=== PATIENT | male | born 1970 | race Two or more races ===

== ENCOUNTER 2019-05-30 16:34 | Emergency (ER) | payer SELFPAY ==
[~2019-05-30] VITALS: Ht 162.6 cm; Wt 66.0 kg
[2019-05-30 17:06] VITALS: BP 140/97
[2019-05-30] MEDS ORDERED: PLEASE ENTER ALLERGIES MC SCH (17:30)
== END 2019-05-30 18:00 | disposition home or self-care (01) ==
LOC: ED 17:54
DX: S50.862A Insect bite (nonvenomous) of left forearm, initial encounter (principal); S80.861A Insect bite (nonvenomous), right lower leg, initial encounter; E11.9 Type 2 diabetes mellitus without complications; W57.XXXA Bitten or stung by nonvenomous insect and other nonvenomous arthropods, initial encounter; Y93.89 Activity, other specified; Y92.89 Other specified places as the place of occurrence of the external cause; Y99.8 Other external cause status
CPT/HCPCS: 99283; Q0177

== ENCOUNTER 2020-04-23 10:26 | Inpatient (IN) | payer OTHER ==
[~2020-04-23] VITALS: Ht 165.1 cm; Wt 66.9 kg
[2020-04-23] MEDS ORDERED: ONDANSETRON 2MG/ML, 2ML ONE (10:52)
[2020-04-23] MEDS ORDERED: ONDANSETRON 2MG/ML, 2ML IVPush ONE (11:00)
[2020-04-23] MEDS ORDERED: SODIUM CHLORIDE 0.9% 1,000ML IVBOLUS ONE ×3 (11:00→13:00)
--- NOTE | 2020-04-23 11:00 | NUR ---
PT PLACE ON ALL ROOM MONITORING. EKG DONE ON ARRIVAL TO ROOM. FS READ HI. PT STATES HX OF HTN, HIGH CHOL, IDDM, GASTRITIS, NEUROPATHY. PT A/O X 3 BUT APPEARS INTOXICATED AND REPORTS OF HEAVY BINGE DRINKING. C/O "STOMACH" PAIN, TENDER TO RUQ AND N/V. CALL LIGHT WITHIN REACH.
[2020-04-23 11:15] LABS: PH, VENOUS 7.176 pH (7.320-7.420)
[2020-04-23 11:20] LABS: BASOPHILS % (AUTO) 0 % (0-1); EOSINOPHILS % (AUTO) 0 % (1-7); LYMPHOCYTES % (AUTO) 4 % (22-44); MEAN CORPUSCULAR HEMOGLOBIN 32.8 pg (27.5-34.5); MEAN CORPUSCULAR HGB CONC 34.6 g/dL (33.2-36.2); MEAN PLATELET VOLUME 10.4 fL (7.4-10.4); MONOCYTES % (AUTO) 4 % (2-9); NEUTROPHILS % (AUTO) 91 % (42-75); PLATELET COUNT 88 x10^3/uL (130-400); RED BLOOD COUNT 4.77 x10^6/uL (4.38-5.82); RED CELL DISTRIBUTION WIDTH 12.8 % (9.4-14.8)
[2020-04-23 11:33] LABS: ALBUMIN 3.7 g/dL (3.4-5.0); ANION GAP 26 mmol/L (5-15); CALCIUM 8.4 mg/dL (8.5-10.1); CHLORIDE 95 mmol/L (98-107)
[2020-04-23 11:38] LABS: ALANINE AMINOTRANSFERASE 79 U/L (12-78); ALKALINE PHOSPHATASE 135 U/L (45-117); BILIRUBIN,TOTAL 1.1 mg/dL (0.2-1.0); CREATININE 1.56 mg/dL (0.7-1.3); TOTAL PROTEIN 7.3 g/dL (6.4-8.2)
--- NOTE | 2020-04-23 11:44 | NUR ---
2ND IV PLACED, 2ND NS BOLUS INFUSING. VSS/UPDATED IN COMPUTER.
[2020-04-23] MEDS ORDERED: REGULAR INSULIN 100 UNITS in SODIUM CHLORIDE 0.9% 99 ML IV PRN ×2 (12:00→13:00)
--- NOTE | 2020-04-23 12:19 | NUR ---
FS 539. URINE COLLECTED/SENT TO LAB. PT C/O PERSISTENT NAUSEA, REQUEST FOR ADDITIONAL ANTIEMETIC TO ERP.
[2020-04-23 12:22] LABS: ACETONE, SERUM Large (80mg/dL) (Negative)
[2020-04-23 12:25] LABS: MD SCAN
[2020-04-23 12:28] LABS: MICROSCOPIC AUTO
[2020-04-23] MEDS ORDERED: METOCLOPRAMIDE 5 MG/ML, 2ML IVPush ONE (12:30)
[2020-04-23] MEDS ORDERED: METOCLOPRAMIDE 5 MG/ML, 2ML ONE (12:34)
--- NOTE | 2020-04-23 12:44 | NUR ---
MED REQUEST TO PHARMACY FOR INSULIN GTT. REGLAN GIVEN FOR PERSISTENT NAUSEA. PCXR AT BS. CALL LIGHT WITHIN REACH.
[2020-04-23] MEDS ORDERED: LABETALOL 5MG/ML, 20ML IVPush PRN (13:00)
[2020-04-23] MEDS ORDERED: LORazepam 2 MG/ML, 1ML IV PRN ×4 (13:00)
[2020-04-23] MEDS ORDERED: POTASSIUM CHLORIDE 40 MEQ in SODIUM CHLORIDE 0.9% 500 ML IV ONE ×2 (13:00→16:00)
[2020-04-23] MEDS ORDERED: ONDANSETRON 2MG/ML, 2ML IV PRN (13:00)
--- NOTE | 2020-04-23 13:09 | NUR ---
[facility] IN TO SEE PT. CLARIFICATION OF ORDERS, PER [facility], CX 2LITER NS BOLUS. PT ALLOWED TO HAVE ICE CHIPS. ADDITIONAL LABS DRAWN. INSULIN GTT INFUSING PER [facility]. PT RESTING, STATES NAUSEA AND PAIN BETTER AT THIS TIME. CALL LIGHT WITHIN REACH.
[2020-04-23] MEDS ORDERED: PHENOBARBITAL ETOH DETOX PER PHARMACY MC PRN ×2 (13:30→21:03)
[2020-04-23 13:38] LABS: CHOL/HDL RATIO 7.5; CHOLESTEROL, TOTAL 322 mg/dL (140-239); FREE T4 (FREE THYROXINE) 0.74 ng/dL (0.76-1.46); HDL CHOL % 13 % (26-37); HDL CHOLESTEROL (DIRECT) 43 mg/dL (40-60); TRIGLYCERIDES 1824 mg/dL (50-200)
--- NOTE | 2020-04-23 13:41 | NUR ---
REPORT TO [facility] READY FOR TRANSPORT TO FLOOR.
[2020-04-23] MEDS: SODIUM CHLORIDE 0.9% 1,000 ML IV SCH ×3 (14:04→22:55)
[2020-04-23] MEDS ORDERED: SODIUM CHLORIDE 0.9% IV ONE (14:30)
[2020-04-23] MEDS ORDERED: PHENOBARBITAL SODIUM IV ONE (14:30)
[2020-04-23] MEDS ORDERED: INSU100V13 SQ (14:47)
[2020-04-23] MEDS ORDERED: EXEN5PEN2 SQ (14:47)
[2020-04-23] MEDS: THIAMINE 200 MG in DEXTROSE 5% 50 ML IVPB SCH (15:01)
[2020-04-23 15:29] LABS: ANION GAP 22 mmol/L (5-15); CALCIUM 7.5 mg/dL (8.5-10.1); CHLORIDE 103 mmol/L (98-107)
[2020-04-23 15:31] LABS: CREATININE 1.17 mg/dL (0.7-1.3)
[2020-04-23 16:26] LABS: TROPONIN I < 0.015 ng/mL (0.000-0.045)
[2020-04-23 19:11] LABS: ANION GAP 18 mmol/L (5-15); CALCIUM 7.6 mg/dL (8.5-10.1); CHLORIDE 108 mmol/L (98-107); CREATININE 1.02 mg/dL (0.7-1.3)
[2020-04-23] MEDS: D5%-0.45NACL+KCL 20MEQ 1,000 ML IV SCH (19:29)
[2020-04-23] MEDS ORDERED: PHENOBARBITAL SODIUM 65 MG/ML, 1ML IM SCH ×2 (21:00→21:30)
[2020-04-23] MEDS: PHENOBARBITAL SODIUM 65 MG/ML, 1ML IM SCH (22:33)
[2020-04-23 23:38] LABS: ANION GAP 11 mmol/L (5-15); CALCIUM 7.4 mg/dL (8.5-10.1); CHLORIDE 112 mmol/L (98-107); CREATININE 0.98 mg/dL (0.7-1.3)
[2020-04-24] MEDS ORDERED: POTASSIUM CHLORIDE 40 MEQ in SODIUM CHLORIDE 0.9% 500 ML IV ONE (01:30)
[2020-04-24 03:39] LABS: ANION GAP 10 mmol/L (5-15); CALCIUM 7.1 mg/dL (8.5-10.1); CHLORIDE 111 mmol/L (98-107)
[2020-04-24 03:40] LABS: CREATININE 0.91 mg/dL (0.7-1.3)
[2020-04-24] MEDS: D5%-0.45NACL+KCL 20MEQ 1,000 ML IV SCH (03:54)
[2020-04-24] MEDS: ESOMEPRAZOLE 40 MG IV IVPush SCH (08:16)
[2020-04-24] MEDS ORDERED: INSULIN GLARGINE 100 UNITS/ML, PEN SQ-INSULIN ONE (08:30)
[2020-04-24 08:32] LABS: TRIGLYCERIDES 402 mg/dL (50-200)
[2020-04-24 08:56] LABS: ANION GAP 10 mmol/L (5-15); CALCIUM 7.2 mg/dL (8.5-10.1); CHLORIDE 110 mmol/L (98-107); CREATININE 0.89 mg/dL (0.7-1.3)
[2020-04-24] MEDS: PHENOBARBITAL SODIUM 65 MG/ML, 1ML IM SCH (09:29)
[2020-04-24] MEDS: THIAMINE 200 MG in DEXTROSE 5% 50 ML IVPB SCH (09:29)
[2020-04-24] MEDS ORDERED: GLUCAGON 1 MG IM PRN (10:30)
[2020-04-24] MEDS ORDERED: DEXTROSE 50%, 50ML SYRINGE IVPush PRN (10:30)
[2020-04-24] MEDS ORDERED: DEXTROSE 4 GM TAB.CHEW PO PRN (10:30)
[2020-04-24] MEDS ORDERED: INSULIN LISPRO 100 UNITS/ML, PEN SQ-INSULIN SCH (11:00)
[2020-04-24] MEDS: INSULIN LISPRO 100 UNITS/ML, PEN SQ-INSULIN SCH ×4 (12:04→21:00)
[2020-04-24 12:05] VITALS: BP 135/88
[2020-04-24] MEDS ORDERED: ACETAMINOPHEN 325 MG TABLET ONE (12:55)
[2020-04-24] MEDS: ACETAMINOPHEN 325 MG TABLET PO PRN (12:58)
[2020-04-24] MEDS: METOCLOPRAMIDE 5 MG/ML, 2ML IV PRN (12:58)
[2020-04-24 18:00] VITALS: BP 144/86
[2020-04-24 19:41] VITALS: BP 123/75
[2020-04-24] MEDS: INSULIN GLARGINE 100 UNITS/ML, PEN SQ-INSULIN SCH (21:28)
[2020-04-24] MEDS: SODIUM CHLORIDE FLUSH 10ML SYR IVF SCH (21:29)
[2020-04-24] MEDS: PHENOBARBITAL 20 MG/5 ML ORAL SOL PO SCH (22:07)
[2020-04-25 01:50] VITALS: BP 114/68
[2020-04-25 06:18] LABS: BASOPHILS % (AUTO) 1 % (0-1); EOSINOPHILS % (AUTO) 1 % (1-7); LYMPHOCYTES % (AUTO) 23 % (22-44); MEAN CORPUSCULAR HEMOGLOBIN 32.3 pg (27.5-34.5); MEAN CORPUSCULAR HGB CONC 35.1 g/dL (33.2-36.2); MEAN PLATELET VOLUME 10.8 fL (7.4-10.4); MONOCYTES % (AUTO) 8 % (2-9); NEUTROPHILS % (AUTO) 69 % (42-75); RED BLOOD COUNT 3.96 x10^6/uL (4.38-5.82); RED CELL DISTRIBUTION WIDTH 12.5 % (9.4-14.8)
[2020-04-25 06:36] LABS: ALANINE AMINOTRANSFERASE 54 U/L (12-78); ALBUMIN 3.1 g/dL (3.4-5.0); ANION GAP 11 mmol/L (5-15); CALCIUM 7.7 mg/dL (8.5-10.1); CHLORIDE 97 mmol/L (98-107)
[2020-04-25 06:39] LABS: ALKALINE PHOSPHATASE 91 U/L (45-117); BILIRUBIN,TOTAL 1.8 mg/dL (0.2-1.0); CREATININE 0.67 mg/dL (0.7-1.3); TOTAL PROTEIN 5.9 g/dL (6.4-8.2)
[2020-04-25] MEDS ORDERED: POTASSIUM CHLORIDE 20 MEQ TAB.ER.PRT PO ONE (07:00)
[2020-04-25] MEDS ORDERED: POTASSIUM CHLORIDE 40 MEQ in SODIUM CHLORIDE 0.9% 500 ML IV ONE (07:00)
[2020-04-25 07:02] LABS: MD SCAN
[2020-04-25 07:17] LABS: PLATELET COUNT 46 x10^3/uL (130-400)
[2020-04-25 07:18] VITALS: BP 125/76
[2020-04-25] MEDS: METOCLOPRAMIDE 5 MG/ML, 2ML IV PRN (07:28)
[2020-04-25] MEDS: ESOMEPRAZOLE 40 MG IV IVPush SCH (07:28)
[2020-04-25] MEDS: SODIUM CHLORIDE FLUSH 10ML SYR IVF SCH ×2 (07:29→20:52)
[2020-04-25] MEDS: THIAMINE 100MG TABLET PO SCH (08:09)
[2020-04-25] MEDS: ACETAMINOPHEN 325 MG TABLET PO PRN (08:11)
[2020-04-25] MEDS: PHENOBARBITAL 20 MG/5 ML ORAL SOL PO SCH ×2 (08:12→20:52)
[2020-04-25] MEDS: INSULIN LISPRO 100 UNITS/ML, PEN SQ-INSULIN SCH ×7 (08:13→21:03)
[2020-04-25] MEDS: INSULIN GLARGINE 100 UNITS/ML, PEN SQ-INSULIN SCH ×2 (08:14→21:04)
[2020-04-25 12:43] VITALS: BP 113/72
[2020-04-25 19:39] VITALS: BP 124/78
[2020-04-26 01:49] VITALS: BP 115/76
[2020-04-26 05:22] LABS: ALANINE AMINOTRANSFERASE 70 U/L (12-78); ALBUMIN 3.1 g/dL (3.4-5.0); ANION GAP 8 mmol/L (5-15); CALCIUM 8.5 mg/dL (8.5-10.1); CHLORIDE 97 mmol/L (98-107)
[2020-04-26 05:24] LABS: ALKALINE PHOSPHATASE 93 U/L (45-117); CREATININE 0.57 mg/dL (0.7-1.3); TOTAL PROTEIN 6.2 g/dL (6.4-8.2)
[2020-04-26 05:27] LABS: BASOPHILS % (AUTO) 0 % (0-1); EOSINOPHILS % (AUTO) 1 % (1-7); LYMPHOCYTES % (AUTO) 33 % (22-44); MEAN CORPUSCULAR HEMOGLOBIN 32.3 pg (27.5-34.5); MEAN CORPUSCULAR HGB CONC 35.8 g/dL (33.2-36.2); MEAN PLATELET VOLUME 10.4 fL (7.4-10.4); MONOCYTES % (AUTO) 9 % (2-9); NEUTROPHILS % (AUTO) 58 % (42-75); RED BLOOD COUNT 4.05 x10^6/uL (4.38-5.82); RED CELL DISTRIBUTION WIDTH 12.6 % (9.4-14.8)
[2020-04-26 05:46] LABS: PLATELET COUNT 41 x10^3/uL (130-400)
[2020-04-26 06:06] LABS: MD SCAN
[2020-04-26] MEDS ORDERED: POTASSIUM CHLORIDE 40 MEQ in SODIUM CHLORIDE 0.9% 500 ML IV ONE (06:30)
[2020-04-26] MEDS ORDERED: POTASSIUM CHLORIDE 20 MEQ TAB.ER.PRT PO ONE ×2 (06:30)
[2020-04-26] MEDS: ESOMEPRAZOLE 40 MG IV IVPush SCH (08:10)
[2020-04-26] MEDS: THIAMINE 100MG TABLET PO SCH (08:10)
[2020-04-26] MEDS: INSULIN GLARGINE 100 UNITS/ML, PEN SQ-INSULIN SCH ×2 (08:11→20:10)
[2020-04-26] MEDS: SODIUM CHLORIDE FLUSH 10ML SYR IVF SCH ×2 (08:12→20:03)
[2020-04-26] MEDS: INSULIN LISPRO 100 UNITS/ML, PEN SQ-INSULIN SCH ×7 (08:12→20:11)
[2020-04-26] MEDS: PHENOBARBITAL 20 MG/5 ML ORAL SOL PO SCH ×2 (08:29→20:03)
[2020-04-26 08:32] VITALS: BP 121/78
[2020-04-26] MEDS ORDERED: POTASSIUM CHLORIDE 20 MEQ TAB.ER.PRT ONE (11:10)
[2020-04-26 15:23] VITALS: BP 113/75
[2020-04-26 20:41] VITALS: BP 125/84
[2020-04-26] MEDS: TEMAZEPAM 15 MG CAPSULE PO PRN (20:58)
[2020-04-27 02:04] VITALS: BP 97/65
[2020-04-27 06:13] LABS: BASOPHILS % (AUTO) 1 % (0-1); EOSINOPHILS % (AUTO) 1 % (1-7); LYMPHOCYTES % (AUTO) 38 % (22-44); MEAN CORPUSCULAR HEMOGLOBIN 32.5 pg (27.5-34.5); MEAN CORPUSCULAR HGB CONC 35.8 g/dL (33.2-36.2); MEAN PLATELET VOLUME 10.8 fL (7.4-10.4); MONOCYTES % (AUTO) 12 % (2-9); NEUTROPHILS % (AUTO) 48 % (42-75); PLATELET COUNT 61 x10^3/uL (130-400); RED BLOOD COUNT 4.05 x10^6/uL (4.38-5.82); RED CELL DISTRIBUTION WIDTH 12.6 % (9.4-14.8)
[2020-04-27 06:25] VITALS: BP 113/77
[2020-04-27 06:26] LABS: CHLORIDE 103 mmol/L (98-107)
[2020-04-27 06:30] LABS: ANION GAP 4 mmol/L (5-15); CALCIUM 8.7 mg/dL (8.5-10.1); CREATININE 0.81 mg/dL (0.7-1.3)
[2020-04-27 07:24] LABS: MD SCAN
[2020-04-27] MEDS ORDERED: POTASSIUM CHLORIDE 20 MEQ TAB.ER.PRT PO ONE (08:00)
[2020-04-27] MEDS ORDERED: PHENOBARBITAL 30 MG TABLET ONE (08:01)
[2020-04-27] MEDS: THIAMINE 100MG TABLET PO SCH (08:14)
[2020-04-27] MEDS: INSULIN LISPRO 100 UNITS/ML, PEN SQ-INSULIN SCH ×6 (08:15→21:56)
[2020-04-27] MEDS: INSULIN GLARGINE 100 UNITS/ML, PEN SQ-INSULIN SCH ×2 (08:17→21:55)
[2020-04-27] MEDS: SODIUM CHLORIDE FLUSH 10ML SYR IVF SCH ×2 (08:31→20:22)
[2020-04-27] MEDS: ESOMEPRAZOLE 40 MG IV IVPush SCH (08:31)
[2020-04-27] MEDS: PHENOBARBITAL 20 MG/5 ML ORAL SOL PO SCH ×2 (10:57→22:00)
[2020-04-27 13:14] VITALS: BP 110/73
[2020-04-27 19:42] VITALS: BP 121/80
[2020-04-27] MEDS: TEMAZEPAM 15 MG CAPSULE PO PRN (22:05)
[2020-04-28 01:01] VITALS: BP 104/71
[2020-04-28 06:17] LABS: BASOPHILS % (AUTO) 1 % (0-1); EOSINOPHILS % (AUTO) 1 % (1-7); LYMPHOCYTES % (AUTO) 39 % (22-44); MEAN CORPUSCULAR HEMOGLOBIN 32.7 pg (27.5-34.5); MEAN CORPUSCULAR HGB CONC 35.2 g/dL (33.2-36.2); MEAN PLATELET VOLUME 10.5 fL (7.4-10.4); MONOCYTES % (AUTO) 15 % (2-9); NEUTROPHILS % (AUTO) 45 % (42-75); PLATELET COUNT 81 x10^3/uL (130-400); RED BLOOD COUNT 3.93 x10^6/uL (4.38-5.82); RED CELL DISTRIBUTION WIDTH 12.7 % (9.4-14.8)
[2020-04-28 06:27] LABS: CHLORIDE 103 mmol/L (98-107)
[2020-04-28 06:37] LABS: ALANINE AMINOTRANSFERASE 94 U/L (12-78); ALBUMIN 3.1 g/dL (3.4-5.0); ALKALINE PHOSPHATASE 82 U/L (45-117); ANION GAP 5 mmol/L (5-15); BILIRUBIN,TOTAL 0.4 mg/dL (0.2-1.0); CALCIUM 8.7 mg/dL (8.5-10.1); CREATININE 0.71 mg/dL (0.7-1.3); MD SCAN; TOTAL PROTEIN 6.2 g/dL (6.4-8.2)
[2020-04-28 06:40] VITALS: BP 99/66
[2020-04-28] MEDS: ESOMEPRAZOLE 40 MG IV IVPush SCH (08:19)
[2020-04-28] MEDS: PHENOBARBITAL 20 MG/5 ML ORAL SOL PO SCH (08:19)
[2020-04-28] MEDS: THIAMINE 100MG TABLET PO SCH (08:20)
[2020-04-28] MEDS: INSULIN LISPRO 100 UNITS/ML, PEN SQ-INSULIN SCH ×4 (08:20→11:40)
[2020-04-28] MEDS: INSULIN GLARGINE 100 UNITS/ML, PEN SQ-INSULIN SCH (08:21)
[2020-04-28] MEDS: SODIUM CHLORIDE FLUSH 10ML SYR IVF SCH (08:22)
[2020-04-28] MEDS ORDERED: INSU100I13 SQ-INSULIN (10:37)
[2020-04-28] MEDS ORDERED: INSU100I11 SQ-INSULIN (10:37)
[2020-04-28] MEDS ORDERED: HYDR-826 PO (10:42)
[2020-04-28 12:52] VITALS: BP 118/83
[2020-04-28] MEDS ORDERED: PHENOBARBITAL 20 MG/5 ML ORAL SOL PO SCH (21:00)
== END 2020-04-28 15:42 | disposition home or self-care (01) | DRG 637 ==
LOC: ED 10:46 → EDIP 11:29 → CCU 13:53 → 3N 04-24 17:46 → 5SO 04-26 18:23 → 3N 04-27 18:30 → DCLOUNGE 04-28 15:05
PROVIDERS: ADMIT Hospitalist; ATTEND Family Medicine
DX: E11.10 Type 2 diabetes mellitus with ketoacidosis without coma (principal); K85.20 Alcohol induced acute pancreatitis without necrosis or infection; N17.0 Acute kidney failure with tubular necrosis; F10.239 Alcohol dependence with withdrawal, unspecified; D69.6 Thrombocytopenia, unspecified; E78.5 Hyperlipidemia, unspecified; E86.0 Dehydration; E87.6 Hypokalemia; F10.229 Alcohol dependence with intoxication, unspecified; F32.9 Major depressive disorder, single episode, unspecified; F41.9 Anxiety disorder, unspecified; K29.70 Gastritis, unspecified, without bleeding; K70.10 Alcoholic hepatitis without ascites; K76.0 Fatty (change of) liver, not elsewhere classified; Z59.0 Homelessness; E11.43 Type 2 diabetes mellitus with diabetic autonomic (poly)neuropathy; K31.84 Gastroparesis; E78.1 Pure hyperglyceridemia; Z91.14 Patient's other noncompliance with medication regimen
CPT/HCPCS: 36415; 71045; 74018; 76700; 80048; 80053; 80061; 80074; 80320; 81001; 82010; 82803; 82962; 83036; 83690; 83735; 84100; 84439; 84443; 84478; 84484; 85025; 87040; 87081; 93005; G0378; J1815; J2405; J2560; J3411; J3480; G0480; J2765; J7030; J7040; Q0177